=== PATIENT | female | born 1950 | race Caucasian/White ===

== ENCOUNTER 2020-03-06 11:21 | Emergency (ER) | payer MEDICAID, MEDICARE ==
[~2020-03-06] VITALS: Ht 162.6 cm; Wt 77.0 kg
[2020-03-06 11:29] VITALS: BP 123/77
--- NOTE | 2020-03-06 12:12 | NUR ---
CHARGE/BREAK RN: PT TO ROOM FROM LOBBY AT THIS TIME.
--- NOTE | 2020-03-06 12:57 | NUR ---
Assumed care at this time, bedside report recieved by Camila WING.
--- NOTE | 2020-03-06 12:58 | NUR ---
PT WITH FRAGMENTED SPEECH UNABLE TO GET CONSISTENT HISTORY FROM PT. PT STATES SHE'S HAD WOUND TO L NECK FOR SIX YEARS. PT STATES NO MEDICAL PROBLEMS BUT HASN'T BEEN IN TO SEE DR "FOR MY WHOLE LIFE". PT STATES SHE NEEDS A NEW UTERUS BUT CANNOT COMMUNICATE WHY. PT ASKED HOW WOUND HAPPENED. PT STATES "ITS MY SMOKING" PT ASKED IF SHE CUT NECK AND SHE STATES "I MAY HAVE PLAYED WITH A KNIFE AT SOME TIME". PT DENIES SI OR PSYCH BUT STATES "I'VE BEEN DEPRESSED A LOT WHEN I WAS IN [place]". PT SAYS SHE'S LIVED IN [place] FOR 25 YEARS. WOUND TO L NECK LARGE, OPEN AND DRY WITH BEEFY RED TISSUE TO MOST OF AREA WITH SMALL AMOUNT OF DRY SCAB FORMATION. CALL LIGHT WITHIN REACH. REPORT TO ALTHEA WING, TRANSFER OF CARE AT THIS TIME.
--- NOTE | 2020-03-06 14:04 | NUR ---
Pt given instructions and informed of the improtance of following up with dermatology. Pt informed that it is critical she does. Pt also unable to understand that returning to the ER she will be unable to recieve the treatment she needs. Pt Informed to please call the her medicaid phone number for assistance of a ride to derm clinic. Pt also informed to please call on monday or to the derm office for an appoitnment. spoke with socially responsible investment adviser Kimmie and same recomendation given.
--- NOTE | 2020-03-06 14:07 | NUR ---
Wound care provided and additional home dressings provided as well.
--- NOTE | 2020-03-06 14:11 | NUR ---
Patient/Caregiver given discharge instructions and they have confirmed that they understand the instructions. Patient ambulatory with steady gait.
== END 2020-03-06 14:22 | disposition home or self-care (01) ==
LOC: ED 12:33
DX: J34.89 Other specified disorders of nose and nasal sinuses (principal)
CPT/HCPCS: 99283

== ENCOUNTER 2020-04-16 08:29 | Emergency (ER) | payer MEDICAID, MEDICARE ==
[~2020-04-16] VITALS: Ht 162.6 cm; Wt 77.2 kg
--- NOTE | 2020-04-16 09:09 | NUR ---
CALL CENTER DIRECTOR: PT WALKED BACK FROM LOBBY TO ROOM AT THIS TIME. STEADY UPON AMBULATION.
--- NOTE | 2020-04-16 09:28 | NUR ---
ER MOI-Amol AT BEDSIDE FOR ASSESSMENT.
[2020-04-16 09:39] LABS: BASOPHILS # (AUTO) 0.03 x10^3/uL (0-0.1); BASOPHILS % (AUTO) 0 % (0-1); EOSINOPHILS # (AUTO) 0.06 x10^3/uL (0-0.4); EOSINOPHILS % (AUTO) 1 % (1-7); LYMPHOCYTES % (AUTO) 20 % (22-44); MD NO; MEAN CORPUSCULAR HEMOGLOBIN 30.8 pg (27.0-34.8); MEAN CORPUSCULAR HGB CONC 33.1 g/dL (32.4-35.8); MEAN PLATELET VOLUME 8.5 fL (7.4-10.4); MONOCYTES % (AUTO) 10 % (2-9); NEUTROPHILS # (AUTO) 5.55 x10^3/uL (1.8-6.8); NEUTROPHILS % (AUTO) 69 % (42-75); PLATELET COUNT 209 x10^3/uL (130-400); RED BLOOD COUNT 5.41 x10^6/uL (3.82-5.3); RED CELL DISTRIBUTION WIDTH 13.6 % (9.6-15.2)
[2020-04-16 09:50] LABS: CALCIUM 8.1 mg/dL (8.5-10.1); CREATININE 0.67 mg/dL (0.55-1.02)
[2020-04-16 10:00] LABS: ANION GAP 3 mmol/L (5-15); CHLORIDE 112 mmol/L (98-107)
--- NOTE | 2020-04-16 10:11 | NUR ---
PT D/C'D PER ORDERS, VERBALIZED UNDERSTANDING OF D/C INSTRUCTIONS.
[2020-04-16 10:12] VITALS: BP 131/78
== END 2020-04-16 10:15 | disposition home or self-care (01) ==
LOC: ED 09:17
DX: L98.498 Non-pressure chronic ulcer of skin of other sites with other specified severity (principal)
CPT/HCPCS: 36415; 80048; 85025; 99283